=== PATIENT | female | born 1955 | race Caucasian/White ===

== ENCOUNTER 2019-10-03 05:39 | Day surgery (SDC) | payer BC, MEDICARE ==
[~2019-10-03 05:39] MED LIST: DIPRIVAN 200 MG/20 ML IV ONE
[2019-10-03] MEDS ORDERED: Lactated Ringers 1,000 ML IV ONE (06:58)
[2019-10-03] MEDS ORDERED: Lactated Ringers 1,000 ML IV SCH (07:30)
--- NOTE | 2019-10-03 08:49 | OP ---
SURGERY DATE/TIME: 10/03/2019811 PREOPERATIVE DIAGNOSIS: Screening exam. POSTOPERATIVE DIAGNOSIS: Multiple small rectosigmoid polyps. PROCEDURE: Colonoscopy with cold forceps biopsies. SURGEON: Dr. Dominguez. ANESTHESIA: MAC. Medications given by anesthesia department. HISTORY: The patient is a 64 year old white female presenting now for screening exam. She reports that ten years ago she had a colonoscopy and polyps had been removed with unknown pathology. She cannot remember the name of the GI that preformed it in [place]. The patient is felt the need to have endoscopic evaluation. She was appraised of the risks of the procedure including the risk of perforation, phlebitis, untoward reaction to medication, bleeding and missed lesions. The patient verbalized her understanding and desired to have the procedure performed. DESCRIPTION OF PROCEDURE: The patient was given the medications by the anesthesia department. She had continuous pulse oximetry, ECG monitoring, intermittent blood pressure monitoring and tidal CO2 monitoring during the examination. She was placed in the left lateral decubitus position. A digital rectal examination was performed and revealed normal anal sphincter tone, no masses but extensive external hemorrhoids were noted without active bleeding. There were no masses felt otherwise. The flexible Olympus pediatric colonoscope was used to intubate the rectum. A view of the colon was developed sequentially to the cecum. Upon insertion and withdrawal was noted multiple small early adenomatous appearing polyps in the rectosigmoid area. These were biopsied multiple times and using passage of cold forceps biopsies to destroy the lesions. Upon insertion and withdrawal including a retroflex view in the rectum, no other mucosal lesions being encountered. The scope was removed from the patient who tolerated the procedure well and was sent back to OP recovery in good condition. The prep was noted to be good.
[2019-10-03 09:32] VITALS: O2SAT 98
[2019-10-03 09:41] VITALS: BP 149/87; PULSE 69
== END 2019-10-03 09:35 | disposition home or self-care (01) ==
LOC: SDC 05:39
PROVIDERS: ATTEND Family Medicine
DX: Z12.11 Encounter for screening for malignant neoplasm of colon (principal); D12.7 Benign neoplasm of rectosigmoid junction; K64.4 Residual hemorrhoidal skin tags
CPT/HCPCS: 88305; J2704

== ENCOUNTER 2020-09-29 18:49 | Emergency (ER) | payer MEDICARE ==
[2020-09-29 19:11] LABS: INR 0.92 (0.8-3.0); PROTIME 10.9 SECONDS (9.4-12.5)
[2020-09-29 19:12] LABS: Absolute Neutrophil Ct (ANC) 5.12 (1.4-6.9); BASOPHIL % 0.2 % (0.0-0.4); Basophil (Absolute #) 0.02 (0-0.4); Eosinophil % 0.6 % (0.00-5.0); Eosinophil (Absolute #) 0.05 (0-0.5); Hematocrit 38.3 % (35-47); Lymphocyte (Absolute #) 1.99 (1.0-4.6); Lymphocytes % 24.3 % (24.0-44.0); Mean Cell Volume 86.5 fl (78-100); Mean Corpuscular Hemoglobin 29.3 pg (26-32); Mean Corpuscular Hgb Concent. 33.9 g/dl (32-36); Mean Platelet Volume 10.6 fl (7.5-11.0); Monocyte (Absolute #) 1.01 (0.0-1.3); Monocytes % 12.3 % (0.0-12.0); Neutrophil % 62.6 % (36.0-66.0); Platelet Count 221 K/mm3 (150-450); Red Blood Count 4.43 M/mm3 (4.1-5.4); Red Cell Distribution Width 13.7 % (11.5-14.0); White Blood Count 8.2 K/mm3 (4.0-10.5)
[2020-09-29 19:14] LABS: PTT 29.5 SECONDS (25.1-36.5)
--- NOTE | 2020-09-29 19:22 | ERPHSYRPT ---
- History of Present Illness Time Seen by Provider: 09/29/20 19:17 Historian: patient Exam Limitations: no limitations Patient Subjective Stated Complaint: Patient states she is having chest pain and abdominal pain which she saw her doctor for yesterday who believed it was a urinary tract infection. Unable to report how long she has had chest pain because she "has lost a couple days". States her chest pain "right in her nipples" area. States she is not having pain at this time. Triage Nursing Assessment: Patient presents to ED with chest pain. Patient poor historian due to memory loss. States she is not having pain at this time. EKG sinus rythym. Bp elevated 187/115. Physician History: 65 years old female with history of hypertension, hyperlipidemia presented in the ER with chief complaint of chest pain. Patient reports she is having chest pain all day yesterday behind her left breast, sharp without any significant aggravating or relieving factors. Patient was evaluated by her primary care yesterday as she had some abdominal discomfort as well for which she was given antibiotics to treat UTI. Patient reports she does not have any chest pain today but is concerned about her pain yesterday and she might have a heart attack already. She denies any difficulty breathing. Does not have any history of stenting in the past. Not diabetic and does not smoke. Timing/Duration: yesterday, intermittent, gradual onset, improved Activities at Onset: rest Quality: sharpness Chest Pain Radiation: no radiation Severity of Pain-Max: moderate Severity of Pain-Current: none Modifying Factors: Improves With: nothing Associated Symptoms: denies symptoms Prior Chest Pain/Cardiac Workup: no prior cardiac workup Nitro Today/Relief: no nitro taken today Aspirin Treatment Today: 81 mg x 1 Allergies/Adverse Reactions: No Known Drug Allergies Allergy (Unverified 09/29/19 14:46) Home Medications: Alendronate Sodium 70 mg [Fosamax 70 MG] 70 mg PO Q7D@0600 09/29/19 [History] Aspirin EC 81 mg [Ecotrin 81 mg] 81 mg PO DAILY 09/29/19 [History] Atenolol 25 mg PO DAILY 09/29/19 [History] Fluticasone Propion/Salmeterol [Wixela 100-50 Inhub] 1 each IH DAILY PRN 09/29/19 [History] Simvastatin 10 mg [Zocor 10MG] 10 mg PO DAILY 09/29/19 [History] Sulfamethoxazole/Trimethoprim [Bactrim 400-80 mg Tablet] 1 tab PO BID 09/29/20 [History] Hx Tetanus, Diphtheria Vaccination/Date Given: Yes Immunizations Up to Date: Yes Travel Risk - International Travel Have you traveled outside of the country in past 3 weeks: No - Coronavirus Screening Are you exhibiting any of the following symptoms?: No Close contact with a COVID-19 positive Pt in past 14-21 Days: No - Vaccine Status Have you recieved a Covid-19 vaccination: Yes Insurance Healthcare Representative: [employer] - Vaccination Dates Date of 2cond Vaccination (if applicable): 06/09/20 - Review of Systems Constitutional: No Symptoms Eyes: No Symptoms Ears, Nose, & Throat: No Symptoms Respiratory: No Symptoms Cardiac: Chest Pain Abdominal/Gastrointestinal: No Symptoms Genitourinary Symptoms: No Symptoms Musculoskeletal: No Symptoms Skin: No Symptoms Neurological: No Symptoms Psychological: No Symptoms Endocrine: No Symptoms Hematologic/Lymphatic: No Symptoms Immunological/Allergic: No Symptoms - Past Medical History Pertinent Past Medical History: Yes Neurological History: TIA ENT History: No Pertinent History Cardiac History: Aneurysm, High Cholesterol, Hypertension Respiratory History: COPD, Tuberculosis Endocrine Medical History: No Pertinent History Musculoskeletal History: Arthritis, Rheumatoid Arthritis GI Medical History: No Pertinent History History: No Pertinent History Psycho-Social History: No Pertinent History Female Reproductive Disorders: No Pertinent History Other Medical History: 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, 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 ,4 ministrokes-TIA - Past Surgical History Past Surgical History: Yes Neuro Surgical History: No Pertinent History Cardiac: No Pertinent History Respiratory: No Pertinent History Gastrointestinal: No Pertinent History Genitourinary: No Pertinent History Musculoskeletal: Orthopedic Surgery Female Surgical History: Tubal Ligation Other Surgical History: cyst on ovary,left wrist with metal placed - Social History Smoking Status: Former smoker Exposure to second hand smoke: No Drug Use: none Patient Lives Alone: Yes - Female History Hx Now: No - Nursing Vital Signs Nursing Vital Signs: Initial Vital Signs Temperature 97.8 F 09/29/20 18:50 Pulse Rate 75 09/29/20 18:50 Respiratory Rate 19 09/29/20 18:50 Blood Pressure 185/105 09/29/20 18:50 O2 Sat by Pulse Oximetry 97 09/29/20 18:50 Pain Scale Pain Intensity 0 - Physical Exam General Appearance: no apparent distress, alert Eye Exam: PERRL/EOMI Ears, Nose, Throat Exam: normal ENT inspection, TMs normal, pharynx normal Neck Exam: normal inspection, non-tender, supple, full range of motion Respiratory Exam: normal breath sounds, lungs clear Cardiovascular Exam: regular rate/rhythm, normal heart sounds Gastrointestinal/Abdomen Exam: soft, normal bowel sounds, No tenderness Back Exam: normal inspection, normal range of motion Extremity Exam: normal inspection, normal range of motion, pelvis stable Neurologic Exam: alert, oriented x 3, cooperative, roadside mechanic II-XII nml as tested Skin Exam: normal color SpO2 Interpretation: normal SpO2: 97 O2 Delivery: Room Air - Course EKG Interpreted by Me: RATE (77), Sinus Rhythm, NORMAL AXIS, NORMAL INTERVALS, Non-specific ST Changes Ordered Tests: Active Orders 24 hr Category Date Time Status Sales Account Executive STAT Care 09/29/20 19:03 Active EKG-ER Only STAT Care 09/29/20 19:02 Active IV Insertion STAT Care 09/29/20 19:02 Active CHEST 1 VIEW (PORTABLE) Stat Exams 09/29/20 19:03 Taken CHEST WITH CONTRAST [CT] Stat Exams 09/29/20 19:36 Taken CBC W DIFF Stat Lab 09/29/20 18:58 Completed CMP Stat Lab 09/29/20 18:58 Completed D-DIMER QUANTITATIVE Stat Lab 09/29/20 18:58 Completed NT PRO BNP Stat Lab 09/29/20 18:58 Completed PROTIME WITH INR Stat Lab 09/29/20 18:58 Completed PTT Stat Lab 09/29/20 18:58 Completed TROPONIN Q3H Lab 09/29/20 18:58 Completed TROPONIN Q3H Lab 09/29/20 21:48 Received TROPONIN Q3H Lab 09/30/20 01:15 Ordered TROPONIN Q3H Lab 09/30/20 04:15 Ordered TROPONIN Q3H Lab 09/30/20 07:15 Ordered Medication Summary Discontinued Medications Generic Name Dose Route Start Last Admin Trade Name Freq PRN Reason Stop Dose Admin Aspirin 243 mg 09/29/20 19:49 09/29/20 19:51 Baby Aspirin 81 Mg Chew PO 09/29/20 19:50 243 mg STAT ONE Administration Nitroglycerin Confirm 09/29/20 19:37 Nitro-Bid 2% Ud Packets Administered 09/29/20 19:38 Dose 1 gm .ROUTE .STK-MED ONE Nitroglycerin 1 gm 09/29/20 19:50 09/29/20 19:51 Nitro-Bid 2% Ud Packets TOP 09/29/20 19:51 1 gm STAT ONE Administration Lab/Rad Data: Laboratory Result Diagrams 09/29/20 18:58 09/29/20 18:58 Laboratory Results 09/29/20 09/29/20 09/29/20 Range/Units 18:58 18:58 18:58 WBC (4.0-10.5) K/mm3 RBC (4.1-5.4) M/mm3 Hgb (12.0-16.0) gm/dl Hct (35-47) % MCV (78-100) fl MCH (26-32) pg MCHC (32-36) g/dl RDW (11.5-14.0) % Plt Count (150-450) K/mm3 MPV (7.5-11.0) fl Gran % (36.0-66.0) % Eos # (Auto) (0-0.5) Absolute Lymphs (auto) (1.0-4.6) Absolute Monos (auto) (0.0-1.3) Lymphocytes % (24.0-44.0) % Monocytes % (0.0-12.0) % Eosinophils % (0.00-5.0) % Basophils % (0.0-0.4) % Absolute Granulocytes (1.4-6.9) Basophils # (0-0.4) PT 10.9 (9.4-12.5) SECONDS INR 0.92 (0.8-3.0) APTT 29.5 (25.1-36.5) SECONDS D-Dimer 1487 H* (215-500) ng/mL Sodium 129 L (137-145) mmol/L Potassium 3.8 (3.5-5.1) mmol/L Chloride 97 L (98-107) mmol/L Carbon Dioxide 24 (22-30) mmol/L Anion Gap 11.9 (5-15) MEQ/L BUN 6 L (7-17) mg/dL Creatinine 0.85 (0.52-1.04) mg/dL Estimated GFR > 60.0 ML/MIN Glucose 114 H (74-106) mg/dL Calcium 9.1 (8.4-10.2) mg/dL Total Bilirubin 0.40 (0.2-1.3) mg/dL AST 220 H (14-36) U/L ALT 110 H (0-35) U/L Alkaline Phosphatase 58 (38-126) U/L Troponin I 0.061 H* (0.000-0.034) ng/mL NT-Pro-B Natriuret Pep 420 (0-900) pg/mL Serum Total Protein 6.7 (6.3-8.2) g/dL Albumin 4.3 (3.5-5.0) g/dL 09/29/20 Range/Units 18:58 WBC 8.2 (4.0-10.5) K/mm3 RBC 4.43 (4.1-5.4) M/mm3 Hgb 13.0 (12.0-16.0) gm/dl Hct 38.3 (35-47) % MCV 86.5 (78-100) fl MCH 29.3 (26-32) pg MCHC 33.9 (32-36) g/dl RDW 13.7 (11.5-14.0) % Plt Count 221 (150-450) K/mm3 MPV 10.6 (7.5-11.0) fl Gran % 62.6 (36.0-66.0) % Eos # (Auto) 0.05 (0-0.5) Absolute Lymphs (auto) 1.99 (1.0-4.6) Absolute Monos (auto) 1.01 (0.0-1.3) Lymphocytes % 24.3 (24.0-44.0) % Monocytes % 12.3 H (0.0-12.0) % Eosinophils % 0.6 (0.00-5.0) % Basophils % 0.2 (0.0-0.4) % Absolute Granulocytes 5.12 (1.4-6.9) Basophils # 0.02 (0-0.4) PT (9.4-12.5) SECONDS INR (0.8-3.0) APTT (25.1-36.5) SECONDS D-Dimer (215-500) ng/mL Sodium (137-145) mmol/L Potassium (3.5-5.1) mmol/L Chloride (98-107) mmol/L Carbon Dioxide (22-30) mmol/L Anion Gap (5-15) MEQ/L BUN (7-17) mg/dL Creatinine (0.52-1.04) mg/dL Estimated GFR ML/MIN Glucose (74-106) mg/dL Calcium (8.4-10.2) mg/dL Total Bilirubin (0.2-1.3) mg/dL AST (14-36) U/L ALT (0-35) U/L Alkaline Phosphatase (38-126) U/L Troponin I (0.000-0.034) ng/mL NT-Pro-B Natriuret Pep (0-900) pg/mL Serum Total Protein (6.3-8.2) g/dL Albumin (3.5-5.0) g/dL - Progress Progress: re-examined Air Movement: good Progress Note: 09/29/20 19:52 65-year-old is evaluated for left-sided chest pain with some shortness of breath earlier. Patient does not have any chest pain or shortness of breath but has some tightness in the chest. Given aspirin and Nitropaste. EKG showed sinus rhythm with no acute ST elevation fulfilling criteria for STEMI, does have right bundle branch block. Initial troponins are mildly elevated 0.06 and also has elevated D-dimer in 1400s. Patient wants to go to [facility] if we need to transfer. I have discussed with [facility] who do not think patient needs to be taken to [facility] immediately and we can go ahead with CTA chest to rule out PE especially the fact that patient does not have any chest pain at present. 09/29/20 21:18 I have called [facility] and discussed with cardiology but patient later on decided to go to [facility] as she wanted to go there to begin with as long as Dr. Bass goes there which I confirmed that he goes to both places. CTA is negative for PE, dissection or any other acute findings. Patient does not have any chest pain throughout stay in the ER and her pressure in the chest and blood pressure also improved with Nitropaste. Discussed with Dr. Rhoades at [facility] ER, reviewed history, work-up and current management, agreed with transfer. Blood Culture(s) Obtained: No Antibiotics given: No Discussed with : Other (Bari) Counseled pt/family regarding: lab results, diagnosis ( ideology), rad results - Departure Departure Disposition: Transfer Clinical Impression: NSTEMI (non-ST elevated myocardial infarction) Condition: Stable Critical Care Time: Yes Critical Care Time(excluding separately billable procedures): Critical 30-74 mins Referrals: MEETA HOBBS [Primary Care Provider] -
[2020-09-29 19:24] LABS: ALBUMIN 4.3 g/dL (3.5-5.0); ALKALINE PHOSPHATASE 58 U/L (38-126); ANION GAP 11.9 MEQ/L (5-15); BLOOD UREA NITROGEN 6 mg/dL (7-17); CHLORIDE 97 mmol/L (98-107); Calcium 9.1 mg/dL (8.4-10.2); Carbon Dioxide 24 mmol/L (22-30); Creatinine 1 0.85 mg/dL (0.52-1.04); EST GLOMERULAR FILTRATION RATE > 60.0 ML/MIN; Glucose 114 mg/dL (74-106); NT PRO BNP 420 pg/mL (0-900); Potassium 3.8 mmol/L (3.5-5.1); SGOT/AST 220 U/L (14-36); SGPT/ALT 110 U/L (0-35); SODIUM 129 mmol/L (137-145); Total Protein 6.7 g/dL (6.3-8.2)
[2020-09-29] MEDS ORDERED: NITRO-BID 2% UD PACKETS ONE (19:37)
[2020-09-29] MEDS ORDERED: BABY ASPIRIN 81 MG CHEW PO ONE (19:49)
[2020-09-29] MEDS ORDERED: NITRO-BID 2% UD PACKETS TOP ONE (19:50)
[2020-09-29 22:12] VITALS: BP 170/105; PULSE 72
[2020-09-29 22:40] VITALS: O2SAT 97
--- NOTE | 2020-09-30 09:56 | XRAY ---
Exam: CT of the chest with IV contrast from 09/29/2020. CTDI: 11.84 mGy Comparison: AP upright portable chest film from 09/29/2020. Indication: 65-year-old female with chest pain and shortness of air for 3 days; history of COPD; elevated d-dimer of 1487; increased troponin Technique: Post-IV contrast axial images were obtained through the chest during automated injection of 80 ML's of IV 370 contrast material. Reconstructed coronal and sagittal images were created and reviewed. Findings: The pulmonary arteries enhance well revealing no filling defects to suggest clot/emboli. I see no evidence of thoracic aortic aneurysm or dissection. The heart size is normal without pericardial effusion. I see no evidence of abnormal perihilar or mediastinal lymphadenopathy. No abnormal axillary lymphadenopathy is seen. A couple small granulomatous calcifications are seen to the right of the distal posterior trachea. Moderate centrilobular emphysematous changes are seen, greatest within the upper lobes. No infiltrates, vascular congestion, pneumothorax, or pleural fluid is seen. No soft tissue lung nodule is seen. There is a small retrocardiac hiatal hernia. The upper abdomen reveals an 8 mm in diameter cyst or small hemangioma the anterior margin of the liver. There is also suggestion of a 6 mm cyst or small hemangioma at the superior margin of the hepatic lobe. Minimal nodularity of the right adrenal gland is seen. There is some fullness of the left adrenal gland on axial image #274. This could be due to hyperplasia or perhaps a small adenoma. Other etiologies cannot be completely excluded. The skeleton reveals no fracture or other acute process. There is a mild mid dorsal kyphosis. Minimal degenerative changes are seen within the lower thoracic spine. Impression: 1. I see no evidence of acute pulmonary embolism or other acute process within the chest. 2. Moderate centrilobular emphysematous changes are seen bilaterally, most pronounced within the upper lobes. 3. 8 mm in diameter hepatic cyst versus hemangioma at the anterior margin of the liver. See axial image #269. In addition, there may be a second 6 mm cyst or hemangioma at the upper aspect of the left lobe of the liver on image #264. 4. Small hiatal hernia. 5. There is mild fullness within both adrenal glands, left greater than right. It is likely that this is due to adrenal hyperplasia or small adrenal adenomas. Other possibilities are not completely excluded.
--- NOTE | 2020-09-30 16:48 | XRAY ---
Exam: AP upright portable chest film from 09/29/2020. Comparison: None. Indication: Chest pain. Findings: The heart size and contour are normal. The fuad and mediastinal structures appear unremarkable. Mild atherosclerotic vascular calcification is seen within the aortic knob. The lungs are mildly hyperinflated. Some emphysematous changes are suspected within the upper lobes. No air space infiltrates, vascular congestion, pneumothorax, or pleural fluid is seen. No acute osseous process is seen. Impression: 1. Mild hyperinflation of the lungs with some relative radiolucency overlying both upper lobes suggestive of emphysematous changes. 2. No acute cardiopulmonary disease is seen.
== END 2020-09-29 23:05 | disposition short-term general hospital (02) ==
LOC: ED 18:49
DX: I21.4 Non-ST elevation (NSTEMI) myocardial infarction (principal); I10 Essential (primary) hypertension; E78.5 Hyperlipidemia, unspecified
CPT/HCPCS: 36000; 36415; 71045; 71260; 80053; 83880; 84484; 85025; 85379; 85610; 85730; 93005; 93041; 99285; 99291; A9270-GY

== ENCOUNTER 2021-07-02 12:08 | Emergency (ER) | payer MEDICARE ==
--- NOTE | 2021-07-02 13:00 | ERPHSYRPT ---
- History of Present Illness Time Seen by Provider: 07/02/21 12:57 Source: patient Exam Limitations: no limitations Patient Subjective Stated Complaint: Swelling to LLE Triage Nursing Assessment: Patient ambulated back to ED and transferred to bed per self. Patient A+O X 3. Patient's skin pink, warm and dry. Patient complains of LLE swelling and redness since yesterday. Patient has dx of DVT in LLE. Patient complains of pain 5/10. LLE noted to be red, warm and swollen. Pulses noted. Physician History: Patient complains of LLE swelling and redness since yesterday. Patient has dx of DVT in LLE. Patient complains of pain 5/10. LLE noted to be red, warm and swollen. Timing/Duration: yesterday Severity: mild Associated Symptoms: denies symptoms Allergies/Adverse Reactions: No Known Drug Allergies Allergy (Verified 07/02/21 12:21) Home Medications: Alendronate Sodium 70 mg [Fosamax 70 MG] 70 mg PO Q7D@0600 09/29/19 [History] Aspirin EC 81 mg [Ecotrin 81 mg] 81 mg PO DAILY 09/29/19 [History] Fluticasone Propion/Salmeterol [Wixela 100-50 Inhub] 1 each IH DAILY PRN 0 09/29/19 [History] Simvastatin 10 mg [Zocor 10MG] 10 mg PO DAILY 09/29/19 [History] atenoloL [Atenolol] 25 mg PO DAILY 09/29/19 [History] Sulfamethoxazole/Trimethoprim [Bactrim 400-80 mg Tablet] 1 tab PO BID 09/29/20 [History] Hx Tetanus, Diphtheria Vaccination/Date Given: Yes Hx Influenza Vaccination/Date Given: Yes Hx Pneumococcal Vaccination/Date Given: No Immunizations Up to Date: Yes Travel Risk - International Travel Have you traveled outside of the country in past 3 weeks: No - Coronavirus Screening Are you exhibiting any of the following symptoms?: No Close contact with a COVID-19 positive Pt in past 14-21 Days: No - Vaccine Status Have you recieved a Covid-19 vaccination: Yes [employer]: [employer] - Vaccination Dates Date of 2cond Vaccination (if applicable): 06/09/20 - Review of Systems Constitutional: No Fever, No Chills Eyes: No Symptoms Ears, Nose, & Throat: No Symptoms Respiratory: No Cough, No Dyspnea Cardiac: No Chest Pain, No Edema, No Syncope Abdominal/Gastrointestinal: No Abdominal Pain, No Nausea, No Vomiting, No Diarrhea Genitourinary Symptoms: No Dysuria Musculoskeletal: No Back Pain, No Neck Pain Skin: Cellulitis (left lower leg cunningham area), No Rash Neurological: No Dizziness, No Focal Weakness, No Sensory Changes Psychological: No Symptoms Endocrine: No Symptoms All Other Systems: Reviewed and Negative - Past Medical History Pertinent Past Medical History: Yes Neurological History: TIA ENT History: No Pertinent History Cardiac History: Aneurysm, High Cholesterol, Hypertension Respiratory History: COPD, Tuberculosis Endocrine Medical History: No Pertinent History Musculoskeletal History: Arthritis, Rheumatoid Arthritis GI Medical History: No Pertinent History History: No Pertinent History Psycho-Social History: No Pertinent History Female Reproductive Disorders: No Pertinent History Other Medical History: 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, 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 ,4 ministrokes-TIA - Past Surgical History Past Surgical History: Yes Neuro Surgical History: No Pertinent History Cardiac: No Pertinent History Respiratory: No Pertinent History Gastrointestinal: No Pertinent History Genitourinary: No Pertinent History Musculoskeletal: Orthopedic Surgery Female Surgical History: Tubal Ligation Other Surgical History: cyst on ovary,left wrist with metal placed - Social History Smoking Status: Former smoker Exposure to second hand smoke: No Drug Use: none Patient Lives Alone: Yes - Nursing Vital Signs Nursing Vital Signs: Initial Vital Signs Temperature 97.3 F 07/02/21 12:21 Pulse Rate 74 07/02/21 12:21 Respiratory Rate 18 07/02/21 12:21 Blood Pressure 168/95 07/02/21 12:21 O2 Sat by Pulse Oximetry 97 07/02/21 12:21 Pain Scale Pain Intensity 5 - Physical Exam General Appearance: no apparent distress, alert Eye Exam: PERRL/EOMI, eyes nml inspection Ears, Nose, Throat Exam: normal ENT inspection, TMs normal, pharynx normal, moist mucous membranes Neck Exam: normal inspection, non-tender, supple, full range of motion Respiratory Exam: normal breath sounds, lungs clear, No respiratory distress Cardiovascular Exam: regular rate/rhythm, normal heart sounds, normal peripheral pulses Gastrointestinal/Abdomen Exam: soft, normal bowel sounds, No tenderness, No mass Back Exam: normal inspection, normal range of motion, No CVA tenderness, No vertebral tenderness Extremity Exam: normal inspection, normal range of motion, pelvis stable Neurologic Exam: alert, oriented x 3, cooperative, normal mood/affect, nml cerebellar function, nml station & gait, sensation nml, No motor deficits Skin Exam: normal color, warm, dry, No rash Lymphatic Exam: No adenopathy SpO2 Interpretation: normal SpO2: 97 O2 Delivery: Room Air - Course Nursing assessment & vital signs reviewed: Yes Ordered Tests: Active Orders 24 hr Category Date Time Status CBC W DIFF Stat Lab 07/02/21 13:00 Completed CMP Stat Lab 07/02/21 13:00 Completed Lab/Rad Data: Laboratory Result Diagrams 07/02/21 13:00 07/02/21 13:00 Laboratory Results 07/02/21 07/02/21 Range/Units 13:00 13:00 WBC 11.7 H (4.0-10.5) K/mm3 RBC 4.42 (4.1-5.4) M/mm3 Hgb 13.0 (12.0-16.0) gm/dl Hct 38.7 (35-47) % MCV 87.6 (78-100) fl MCH 29.4 (26-32) pg MCHC 33.6 (32-36) g/dl RDW 13.4 (11.5-14.0) % Plt Count 230 (150-450) K/mm3 MPV 10.4 (7.5-11.0) fl Gran % 70.1 H (36.0-66.0) % Eos # (Auto) 0.08 (0-0.5) Absolute Lymphs (auto) 2.23 (1.0-4.6) Absolute Monos (auto) 1.14 (0.0-1.3) Lymphocytes % 19.1 L (24.0-44.0) % Monocytes % 9.8 (0.0-12.0) % Eosinophils % 0.7 (0.00-5.0) % Basophils % 0.3 (0.0-0.4) % Absolute Granulocytes 8.19 H (1.4-6.9) Basophils # 0.04 (0-0.4) Sodium 134 L (137-145) mmol/L Potassium 3.8 (3.5-5.1) mmol/L Chloride 100 (98-107) mmol/L Carbon Dioxide 25 (22-30) mmol/L Anion Gap 13.3 (5-15) MEQ/L BUN 12 (7-17) mg/dL Creatinine 0.72 (0.52-1.04) mg/dL Estimated GFR > 60.0 ML/MIN Glucose 94 (74-106) mg/dL Calcium 9.1 (8.4-10.2) mg/dL Total Bilirubin 0.40 (0.2-1.3) mg/dL AST 30 (14-36) U/L ALT 25 (0-35) U/L Alkaline Phosphatase 65 (38-126) U/L Serum Total Protein 6.6 (6.3-8.2) g/dL Albumin 4.1 (3.5-5.0) g/dL - Progress Progress: unchanged Counseled pt/family regarding: lab results, diagnosis, need for follow-up - Departure Departure Disposition: Home Clinical Impression: Thrombophlebitis leg superficial Qualifiers: Laterality: left Qualified Code(s): I80.02 - Phlebitis and thrombophlebitis of superficial vessels of left lower extremity Condition: Stable Critical Care Time: No Referrals: MEETA HOBBS MD [Primary Care Provider] - Follow up/PCP as directed Instructions: Superficial Phlebitis, Phlebitis (DC) Additional Instructions: Discharge/Care Plan ESTUARDO FAUST was seen on 07/02/21 in the Emergency Room. The patient was counseled regarding Diagnosis,Lab results, Imaging studies, need for follow up and when to return to the Emergency Room. Prescriptions given: Discharge Note I have spoken with the patient and/or caregivers. I have explained the patient's condition, diagnosis and treatment plan based on the information available to me at this time. I have answered the patient's and/or caregiver's questions and addressed any concerns. The patient and/or caregivers have as good understanding of the patient's diagnosis, condition and treatment plan as can be expected at this point. The vital signs have been stable. The patient's condition is stable and appropriate for discharge from the emergency department. The patient will pursue further outpatient evaluation with the primary care physician or other designated or consulting physician as outlined in the discharge instructions. The patient and/or caregivers are agreeable to this plan of care and follow-up instructions have been explained in detail. The patient and/or caregivers have received these instruction. The patient/and or caregivers are aware that any significant change in condition or worsening of symptoms should prompt an immediate return to this or the closest emergency department or call 911. ESTUARDO FAUST was seen on 07/02/21 n the Emergency Room. At that time you were treated for an emergent condition, during your visit Laboratory, Radiology and/or other procedures may have been ordered. It is very important that you follow-up with your Primary Care Physician MEETA HOBBS within the next 24 -48 hours to review your Emergency Room visit and the final results of testing that was ordered. Some test results such as Urine Cultures, Blood Cultures, and other cultures if ordered will not be finalized for 24-48 hours. If you do not have a Primary Care Provider please call the medical records department at [phone] ext [phone] to obtain a copy of your results or you may sign into our patient portal to obtain these results by visiting us @ [email or web address] and completing the following steps: 1. Click on the Patient Portal link 2. Click the Patient Self Enrollment Link to complete the enrollment form and entering your 3. Once the enrollment form is completed you will receive an email with a temporary ID and password at the email address you provided. 4. Next choose a user name and password. Your user name must be at least 4 jd racters long and your password must be at least 4 characters long. 5. Choose a security question from the list and provide your answer to the question. If you already have signed into the Health Portal you may access your Health Care Information 30/10 by the following steps: 1. Login to our website @ [email or web address] 2. Enter your original user name and password. FAQS The [facility] Health Portal is an online tool that contains your Lab Results, Radiology Reports, Visit History, Discharge Instructions and Health Summary Lab and Radiology Results will not be available for 72 hours on the portal. The Portal is a secure site, passwords are encryted and URLs are re-written so they cannot be copied and pasted. You and authorized family members are the only ones who can access your Portal. Also there is a timeout feature that protects your information if you leave the Portal page open. If you have technical difficulty please use the Contact Us link on the page this will allow you to submit any questions you have regarding the Portal or you may contact the Medical Record Department at [phone]. Prescriptions: Mupirocin [Bactroban OINTMENT] 1 gm TP BID #15 cm Cephalexin Mh 500 mg [Keflex 500 mg] 500 mg PO Q6H #40 cap
[2021-07-02 13:08] LABS: Absolute Neutrophil Ct (ANC) 8.19 (1.4-6.9); Basophil (Absolute #) 0.04 (0-0.4); Eosinophil % 0.7 % (0.00-5.0); Eosinophil (Absolute #) 0.08 (0-0.5); Hematocrit 38.7 % (35-47); Lymphocyte (Absolute #) 2.23 (1.0-4.6); Lymphocytes % 19.1 % (24.0-44.0); Mean Cell Volume 87.6 fl (78-100); Mean Corpuscular Hemoglobin 29.4 pg (26-32); Mean Corpuscular Hgb Concent. 33.6 g/dl (32-36); Mean Platelet Volume 10.4 fl (7.5-11.0); Monocyte (Absolute #) 1.14 (0.0-1.3); Monocytes % 9.8 % (0.0-12.0); Neutrophil % 70.1 % (36.0-66.0); Platelet Count 230 K/mm3 (150-450); Red Blood Count 4.42 M/mm3 (4.1-5.4); Red Cell Distribution Width 13.4 % (11.5-14.0); White Blood Count 11.7 K/mm3 (4.0-10.5)
[2021-07-02 13:27] LABS: ALBUMIN 4.1 g/dL (3.5-5.0); ALKALINE PHOSPHATASE 65 U/L (38-126); ANION GAP 13.3 MEQ/L (5-15); BLOOD UREA NITROGEN 12 mg/dL (7-17); CHLORIDE 100 mmol/L (98-107); Calcium 9.1 mg/dL (8.4-10.2); Carbon Dioxide 25 mmol/L (22-30); Creatinine 1 0.72 mg/dL (0.52-1.04); EST GLOMERULAR FILTRATION RATE > 60.0 ML/MIN; Glucose 94 mg/dL (74-106); Potassium 3.8 mmol/L (3.5-5.1); SGOT/AST 30 U/L (14-36); SGPT/ALT 25 U/L (0-35); SODIUM 134 mmol/L (137-145); Total Protein 6.6 g/dL (6.3-8.2)
[2021-07-02 13:49] VITALS: BP 151/83; PULSE 68; O2SAT 98
== END 2021-07-02 13:54 | disposition home or self-care (01) ==
LOC: ED 12:08
DX: I80.02 Phlebitis and thrombophlebitis of superficial vessels of left lower extremity (principal); R60.0 Localized edema; Z86.718 Personal history of other venous thrombosis and embolism; E78.5 Hyperlipidemia, unspecified; I10 Essential (primary) hypertension; J44.9 Chronic obstructive pulmonary disease, unspecified; Z79.899 Other long term (current) drug therapy
CPT/HCPCS: 36415; 80053; 85025; 99283

== ENCOUNTER 2022-01-13 13:45 | Emergency (ER) | payer MEDICARE ==
--- NOTE | 2022-01-13 14:54 | ERPHSYRPT ---
- History of Present Illness Source: patient Exam Limitations: no limitations Patient Subjective Stated Complaint: C/O pain and swelling to left lower leg that started yesterday Triage Nursing Assessment: Patient ambulated back to ED without difficulites. Redness, warmth, and swelling noted to left lower anterior leg. Pedal pulse present and strong. Skin intact to area. Physician History: 66 yo wf w L pre-tibial pain, erythema, and edema since last night. Pt has a h/o a "blood clot" and thinks that she has one again. She take Plavix/Aspirin daily. Pt states that pain is 5/10 and denies fever/chest pain/dyspnea. Injury is also denied. Method of Injury: unknown (No injury) Occurred: yesterday Quality: constant Severity of Pain-Max: moderate Severity of Pain-Current: moderate Lower Extremities Pain: leg: left Modifying Factors: Improves With: movement Associated Symptoms: none Allergies/Adverse Reactions: No Known Drug Allergies Allergy (Verified 01/13/22 14:04) Home Medications: Alendronate Sodium 70 mg [Fosamax 70 MG] 70 mg PO Q7D@0600 09/29/19 [History] Aspirin EC 81 mg [Ecotrin 81 mg] 81 mg PO DAILY 09/29/19 [History] Amlodipine Besylate 5 mg [Norvasc 5 mg] 1 tab PO DAILY 01/13/22 [History] Atorvastatin Calcium [Lipitor] 1 tab PO HS 01/13/22 [History] Clopidogrel Bisulfate [PLAVIX Tablet] 1 tab PO DAILY 01/13/22 [History] Metoprolol Tartrate 50 mg [Lopressor 50 MG] 1 tab PO BID 01/13/22 [History] Hx Tetanus, Diphtheria Vaccination/Date Given: Yes Hx Influenza Vaccination/Date Given: Yes Hx Pneumococcal Vaccination/Date Given: No Immunizations Up to Date: Yes Travel Risk - International Travel Have you traveled outside of the country in past 3 weeks: No - Coronavirus Screening Are you exhibiting any of the following symptoms?: No Close contact with a COVID-19 positive Pt in past 14-21 Days: No - Vaccine Status Have you recieved a Covid-19 vaccination: Yes Manager System: [employer] - Vaccination Dates Date of 2cond Vaccination (if applicable): 06/09/20 - Review of Systems Constitutional: No Symptoms Eyes: No Symptoms Ears, Nose, & Throat: No Symptoms Respiratory: No Symptoms Cardiac: No Symptoms Abdominal/Gastrointestinal: No Symptoms Genitourinary Symptoms: No Symptoms Skin: No Symptoms Neurological: No Symptoms Psychological: No Symptoms Endocrine: No Symptoms Hematologic/Lymphatic: No Symptoms Immunological/Allergic: No Symptoms - Past Medical History Pertinent Past Medical History: Yes Neurological History: TIA ENT History: No Pertinent History Cardiac History: Aneurysm, High Cholesterol, Hypertension Respiratory History: COPD, Emphysema, Tuberculosis Endocrine Medical History: No Pertinent History Musculoskeletal History: Arthritis, Rheumatoid Arthritis GI Medical History: No Pertinent History History: No Pertinent History Psycho-Social History: No Pertinent History Female Reproductive Disorders: No Pertinent History Other Medical History: 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, 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 ,4 ministrokes-TIA, LLE blood clot - Past Surgical History Past Surgical History: Yes Neuro Surgical History: No Pertinent History Cardiac: No Pertinent History Respiratory: No Pertinent History Gastrointestinal: No Pertinent History Genitourinary: No Pertinent History Musculoskeletal: Orthopedic Surgery Female Surgical History: Tubal Ligation Other Surgical History: cyst on ovary,left wrist with metal placed - Social History Smoking Status: Former smoker Exposure to second hand smoke: No Drug Use: none Patient Lives Alone: Yes - Nursing Vital Signs Nursing Vital Signs: Initial Vital Signs Temperature 98.6 F 01/13/22 14:06 Pulse Rate 74 01/13/22 14:06 Respiratory Rate 18 01/13/22 14:06 Blood Pressure 165/93 01/13/22 14:06 O2 Sat by Pulse Oximetry 98 01/13/22 14:06 Pain Scale Pain Intensity 4 Hypertensive - Physical Exam General Appearance: no apparent distress Eyes, Ears, Nose, Throat Exam: normal ENT inspection, TMs normal, pharynx normal, moist mucous membranes Neck Exam: normal inspection, non-tender, supple, full range of motion, No Brudzinski, No Kernig's, No meningismus, No carotid bruit Cardiovascular/Respiratory Exam: normal breath sounds, regular rate/rhythm, heart sounds normal Gastrointestinal/Abdominal Exam: non-tender, soft Back Exam: normal inspection, normal range of motion, No CVA tenderness Hips Exam: bilateral: non-tender, normal inspection, normal range of motion, no evidence of injury Legs Exam: left leg: swelling (Mild left pre-tibial erythema, mild TTP, and minimal edema at best/No deformity/No calf edema or TTP/Good pedal pulse, distal sensation, and capillary return) Knees Exam: bilateral knee: non-tender, normal inspection, normal range of motion, no evidence of injury Ankle Exam: bilateral ankle: non-tender, normal inspection, normal range of motion, no evidence of injury Foot Exam: bilateral foot: non-tender, normal inspection, normal range of motion, no evidence of injury Neuro/Tendon Exam: normal sensation, normal motor functions, normal tendon functions, responds to pain, no evidence tendon injury Mental Status Exam: alert, oriented x 3, cooperative Skin Exam: other (Mild L pre-tibal erythema) SpO2 Interpretation: normal SpO2: 98 O2 Delivery: Room Air - Course Nursing assessment & vital signs reviewed: Yes - Radiology Ultrasound Exam Venous Lower Extremity Ultrasound: Other (Neg for DVT per Tech) Ordered Tests: Active Orders 24 hr Category Date Time Status VENOUS UNILAT/LIMITED EXTREMIT [US] Stat Exams 01/13/22 14:49 Completed - Progress Progress Note: 01/13/22 21:01 Pt has very mild erythema, so will treat for possible early cellulitis Counseled pt/family regarding: diagnosis, need for follow-up, rad results - Departure Departure Disposition: Home Clinical Impression: Cellulitis Condition: Stable Critical Care Time: No Referrals: MEETA HOBBS MD [Primary Care Provider] - Follow up/PCP as directed Instructions: Dependent Edema (DC), Cellulitis (Skin Infection), Adult (DC) Additional Instructions: Start Doxycycline twice a day for 1 week Follow up with your family MD on Sunday Return to ER for increasing redness/Pain/Swelling/Temperature greater than 100.5 Prescriptions: Doxycycline Monohydrate 100 mg PO BID #14 cap
[2022-01-13 15:22] VITALS: BP 141/83; PULSE 70
[2022-01-13 15:24] VITALS: O2SAT 98
--- NOTE | 2022-01-13 16:21 | XRAY ---
Indication: Pain and swelling. Two-dimensional sonogram and color Doppler imaging of the major venous vessels of the left leg performed. Comparison: None No thrombus seen in the examined deep venous vessels of the left leg including greater saphenous vein. Veins demonstrate normal compressibility. Venous waveforms are normal with and without augmentation. Impression: Left leg negative for DVT.
== END 2022-01-13 15:40 | disposition home or self-care (01) ==
LOC: ED 13:45
DX: L03.116 Cellulitis of left lower limb (principal); M79.662 Pain in left lower leg; E78.5 Hyperlipidemia, unspecified; I10 Essential (primary) hypertension; J43.9 Emphysema, unspecified; Z79.02 Long term (current) use of antithrombotics/antiplatelets; Z79.899 Other long term (current) drug therapy
CPT/HCPCS: 93971; 99282

== ENCOUNTER 2023-09-14 19:59 | Observation (INO) | payer MEDICARE ==
--- NOTE | 2023-09-14 20:05 | ERPHSYRPT ---
- History of Present Illness Time Seen by Provider: 09/14/23 20:04 Source: patient, family Exam Limitations: clinical condition Physician History: This is a 68-year-old white female patient of Dr. Hobbs who is brought in by private vehicle by the patient's mother who offered independent, additional history secondary to the patient's confusion. Patient's mother states that the patient was last well approximately 10 to 10:15 PM yesterday, 09/13/2023. Patient was confused earlier this morning. Patient does not recall all the events from earlier today. Mother states that the patient put her cell phone and a glass of water. Patient has known history of TIAs and lacunar infarcts. I reviewed an MRI of the brain with and without contrast report dated 08/31/2022. The impression states a remote lacunar infarct present. Patient is a former smoker cigarettes. She does not recall hitting her head. There are no new medications. Patient has history of hypertension, hyperlipidemia, COPD and osteoporosis. Patient is on Plavix and aspirin. Timing/Duration: today, improved Severity: mild (To moderate symptoms earlier) Character of Deficits: none, other Deficits: no difficulties Baseline/Normal Cognition: alert oriented x 3 Current Cognition: alert but confused Baseline Gait: walks w/o assistance (Mildly confused) Associated Symptoms: confusion, No loss of consciousness, No numbness/tingling in legs/feet, No slurred speech, No trouble walking, No vision changes, No chest pain, No headache Allergies/Adverse Reactions: No Known Drug Allergies Allergy (Verified 01/13/22 14:04) Home Medications: Alendronate Sodium 70 mg [Fosamax 70 MG] 70 mg PO Q7D@0600 09/29/19 [History] Aspirin EC 81 mg [Ecotrin 81 mg] 81 mg PO DAILY 09/29/19 [History] Amlodipine Besylate 5 mg [Norvasc 5 mg] 1 tab PO DAILY 01/13/22 [History] Atorvastatin Calcium [Lipitor] 1 tab PO HS 01/13/22 [History] Metoprolol Tartrate 50 mg [Lopressor 50 MG] 1 tab PO BID 01/13/22 [History] Montelukast Sodium 10 mg [Singulair 10 MG] 10 mg PO DAILY 09/14/23 [History] Spironolactone 50 mg PO DAILY PRN PRN 09/14/23 [History] Hx Tetanus, Diphtheria Vaccination/Date Given: Yes Hx Influenza Vaccination/Date Given: Yes Hx Pneumococcal Vaccination/Date Given: No Travel Risk - International Travel Have you traveled outside of the country in past 3 weeks: No - Emerging Infectious Disease Are you exhibiting symptoms associated with any current EIDs: No - Review of Systems Constitutional: No Symptoms Eyes: No Symptoms Ears, Nose, & Throat: No Symptoms Respiratory: No Symptoms Cardiac: No Symptoms Abdominal/Gastrointestinal: No Symptoms Genitourinary Symptoms: No Symptoms Musculoskeletal: No Symptoms Skin: No Symptoms Neurological: Other (Confusion) Psychological: No Symptoms Endocrine: No Symptoms Hematologic/Lymphatic: No Symptoms Immunological/Allergic: No Symptoms All Other Systems: Reviewed and Negative - Past Medical History Pertinent Past Medical History: Yes Neurological History: TIA ENT History: No Pertinent History Cardiac History: Aneurysm, High Cholesterol, Hypertension Respiratory History: COPD, Emphysema, Tuberculosis Endocrine Medical History: No Pertinent History Musculoskeletal History: Arthritis, Rheumatoid Arthritis GI Medical History: No Pertinent History History: No Pertinent History Psycho-Social History: No Pertinent History Female Reproductive Disorders: No Pertinent History Other Medical History: 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, 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 ,4 ministrokes-TIA, LLE blood clot - Past Surgical History Past Surgical History: Yes Neuro Surgical History: No Pertinent History Cardiac: No Pertinent History Respiratory: No Pertinent History Gastrointestinal: No Pertinent History Genitourinary: No Pertinent History Musculoskeletal: Orthopedic Surgery Female Surgical History: Tubal Ligation Other Surgical History: cyst on ovary,left wrist with metal placed - Social History Smoking Status: Former smoker Exposure to second hand smoke: No Drug Use: none Patient Lives Alone: Yes - Nursing Vital Signs Nursing Vital Signs: Initial Vital Signs O2 Sat by Pulse Oximetry 92 L 09/14/23 20:07 Pain Scale Pain Intensity 0 - [place] Coma Scale Best Eye Response ([place]): (4) open spontaneously Best Verbal Response ([place]): (5) oriented Best Motor Response ([place]): (6) obeys commands [place] Total: 15 - Physical Exam General Appearance: no apparent distress, alert, anxiety, thin Eye Exam: bilateral eye: normal inspection, PERRL, EOMI Ears, Nose, Throat Exam: normal ENT inspection, moist mucous membranes Neck Exam: normal inspection, non-tender, supple, full range of motion Respiratory: normal breath sounds, lungs clear, airway intact, No chest tenderness, No respiratory distress Cardiovascular: regular rate/rhythm, normal heart sounds, normal peripheral pulses Gastrointestinal: soft, normal bowel sounds, No tenderness Pelvic Exam: not done Rectal Exam: not done Back Exam: normal inspection, normal range of motion, No CVA tenderness, No vertebral tenderness Extremity Exam: normal inspection, normal range of motion, pelvis stable Mental Status: alert, oriented x 3, cooperative penal officer Exam: normal hearing, normal speech, PERRL, tongue midline Coordination/Gait: normal finger to nose Motor/Sensory: no motor deficit, no sensory deficit, no pronator drift Skin Exam: normal color, warm, dry SpO2 Interpretation: normal O2 Delivery: Room Air - Course Nursing assessment & vital signs reviewed: Yes EKG Interpreted by Me: RATE (76), Sinus Rhythm, NORMAL AXIS, NORMAL INTERVALS, NORMAL QRS, NORMAL ST-T, Other (No acute ischemic changes on today's twelve-lead EKG. The QTc is 430) Ordered Tests: Active Orders 24 hr Category Date Time Status User Interface Designer STAT Care 09/14/23 20:26 Active EKG-ER Only STAT Care 09/14/23 20:25 Active IV Insertion STAT Care 09/14/23 20:25 Active NPO (ED) STAT Care 09/14/23 20:26 Active POCT Glucose Check STAT Care 09/14/23 20:25 Active Pulse Oximetry (ED) STAT Care 09/14/23 20:25 Active HEAD WITHOUT CONTRAST [CT] Stat Exams 09/14/23 21:07 Taken CBC W DIFF Stat Lab 09/14/23 20:30 Completed CMP Stat Lab 09/14/23 20:30 Completed CULTURE,URINE Stat Lab 09/14/23 Received POCT GLUCOSE Stat Lab 09/14/23 20:40 Completed POTASSIUM, URINE RANDOM Stat Lab 09/14/23 21:11 Completed Sodium, Urine Stat Lab 09/14/23 21:11 Completed UA W/RFX UR CULTURE Stat Lab 09/14/23 Completed Medication Summary Generic Name Dose Route Start Last Admin Trade Name Freq PRN Reason Stop Dose Admin Sodium Chloride 1,000 mls @ 100 mls/hr 09/14/23 21:15 09/14/23 21:13 Sodium Chloride 0.9% 1000 Ml IV 10/14/23 21:14 100 mls/hr .Q10H JEET Administration Discontinued Medications Generic Name Dose Route Start Last Admin Trade Name Darcy PRN Reason Stop Dose Admin Ceftriaxone Sodium 1 gm in 100 mls @ 200 mls/hr 09/14/23 21:09 09/14/23 21:15 Rocephin 1 Gm / 100 Ml Nacl IV 09/14/23 21:38 200 ml/hr STAT ONE 200 mls/hr Administration Ceftriaxone Sodium Confirm 09/14/23 21:11 Rocephin 1 Gm / 100 Ml Nacl Administered 09/14/23 21:12 Dose 1 gm in 100 mls @ ud IV .STK-MED ONE Lab/Rad Data: Laboratory Result Diagrams 09/14/23 20:30 09/14/23 20:30 Laboratory Results 09/14/23 09/14/23 09/14/23 Range/Units Unknown 21:11 20:40 WBC (3.98-10.04) x10^3/uL RBC (3.93-5.22) x10^6/uL Hgb (11.2-15.7) g/dL Hct (34.1-44.9) % MCV (79.4-94.8) fL MCH (25.6-32.2) pg MCHC (32.2-35.5) g/dL RDW (11.7-14.4) % Plt Count (182-369) x10^3/uL MPV (9.4-12.3) fL Gran % (34.0-71.1) % Immature Gran % (Auto) (0.001-0.429) % Nucleat RBC Rel Count (0.00-0.2) % Eos # (Auto) (0.04-0.36) x10^3/uL Immature Gran # (Auto) (0.001-0.031) x10^3u/L Absolute Lymphs (auto) (1.18-3.74) x10^3/uL Absolute Monos (auto) (0.24-0.86) x10^3/uL Absolute Nucleated RBC (0.00-0.012) x10^3u/L Lymphocytes % (19.3-51.7) % Monocytes % (4.7-12.5) % Eosinophils % (0.7-5.8) % Basophils % (0.1-1.2) % Absolute Granulocytes (1.56-6.13) x10^3/uL Basophils # (0.01-0.08) x10^3/uL Sodium (135-145) mmol/L Potassium (3.5-5.1) mmol/L Chloride (98-107) mmol/L Carbon Dioxide (22-30) mmol/L Anion Gap (5-15) MEQ/L BUN (7-17) mg/dL Creatinine (0.52-1.04) mg/dL Estimated GFR ML/MIN Glucose (74-106) mg/dL POC Glucometer 136 H (74 to 106) mg/dL Calcium (8.4-10.2) mg/dL Total Bilirubin (0.2-1.3) mg/dL AST (14-36) U/L ALT (0-35) U/L Alkaline Phosphatase (38-126) U/L Ammonia (9-30) umol/L Serum Total Protein (6.3-8.2) g/dL Albumin (3.5-5.0) g/dL Urine Color Yellow (Yellow) Urine Appearance Clear (Clear) Urine pH 6.0 (4.6-8.0) Ur Specific [place] 1.010 (1.005-1.030) Urine Protein Negative (Negative) Urine Glucose (UA) Negative (Negative) mg/dL Urine Ketones Negative (Negative) Urine Blood Trace (Negative) Urine Nitrite Negative (Negative) Urine Bilirubin Negative (Negative) Urine Urobilinogen 0.2 (0.2) mg/dL Ur Leukocyte Esterase Small A (Negative) U Hyaline Cast (Auto) NONE SEEN (0-2) /LPF Urine Microscopic RBC 0-2 (0-5) /HPF Urine Microscopic WBC 6-10 A (0-5) /HPF Ur Epithelial Cells Rare (None Seen) /HPF Urine Bacteria None Seen (None Seen) /HPF Urine Culture Reflexed YES (NO) Urine Sodium 10 L (30-90) mmol/L Urine Potassium 28.2 H (0.1-0.7) mmol/L 09/14/23 09/14/23 09/14/23 Range/Units 20:30 20:30 20:30 WBC 11.9 H (3.98-10.04) x10^3/uL RBC 4.42 (3.93-5.22) x10^6/uL Hgb 12.5 (11.2-15.7) g/dL Hct 35.8 (34.1-44.9) % MCV 81.0 (79.4-94.8) fL MCH 28.3 (25.6-32.2) pg MCHC 34.9 (32.2-35.5) g/dL RDW 13.1 (11.7-14.4) % Plt Count 286 (182-369) x10^3/uL MPV 10.4 (9.4-12.3) fL Gran % 74.2 H (34.0-71.1) % Immature Gran % (Auto) 0.4 (0.001-0.429) % Nucleat RBC Rel Count 0.0 (0.00-0.2) % Eos # (Auto) 0.03 L (0.04-0.36) x10^3/uL Immature Gran # (Auto) 0.05 H (0.001-0.031) x10^3u/L Absolute Lymphs (auto) 1.88 (1.18-3.74) x10^3/uL Absolute Monos (auto) 1.06 H (0.24-0.86) x10^3/uL Absolute Nucleated RBC 0.00 (0.00-0.012) x10^3u/L Lymphocytes % 15.8 L (19.3-51.7) % Monocytes % 8.9 (4.7-12.5) % Eosinophils % 0.3 L (0.7-5.8) % Basophils % 0.4 (0.1-1.2) % Absolute Granulocytes 8.84 H (1.56-6.13) x10^3/uL Basophils # 0.05 (0.01-0.08) x10^3/uL Sodium 115 L* (135-145) mmol/L Potassium 3.8 (3.5-5.1) mmol/L Chloride 84 L (98-107) mmol/L Carbon Dioxide 22 (22-30) mmol/L Anion Gap 13.1 (5-15) MEQ/L BUN 18 H (7-17) mg/dL Creatinine 1.31 H (0.52-1.04) mg/dL Estimated GFR 43.8 ML/MIN Glucose 126 H (74-106) mg/dL POC Glucometer (74 to 106) mg/dL Calcium 9.5 (8.4-10.2) mg/dL Total Bilirubin 0.70 (0.2-1.3) mg/dL AST 41 H (14-36) U/L ALT 28 (0-35) U/L Alkaline Phosphatase 81 (38-126) U/L Ammonia < 9 L (9-30) umol/L Serum Total Protein 7.5 (6.3-8.2) g/dL Albumin 4.7 (3.5-5.0) g/dL Urine Color (Yellow) Urine Appearance (Clear) Urine pH (4.6-8.0) Ur Specific [place] (1.005-1.030) Urine Protein (Negative) Urine Glucose (UA) (Negative) mg/dL Urine Ketones (Negative) Urine Blood (Negative) Urine Nitrite (Negative) Urine Bilirubin (Negative) Urine Urobilinogen (0.2) mg/dL Ur Leukocyte Esterase (Negative) U Hyaline Cast (Auto) (0-2) /LPF Urine Microscopic RBC (0-5) /HPF Urine Microscopic WBC (0-5) /HPF Ur Epithelial Cells (None Seen) /HPF Urine Bacteria (None Seen) /HPF Urine Culture Reflexed (NO) Urine Sodium (30-90) mmol/L Urine Potassium (0.1-0.7) mmol/L - Progress Progress: improved, re-examined Progress Note: 09/14/23 20:37 This patient's medical issue is 1 of moderate complexity. The level of complexity in the workup performed is based on review of the patient's past medical history, review of patient's medication list, review patient drug allergy list, history present illness and physical findings on examination. The workup in this patient includes placement of intravenous line, twelve-lead EKG, urinalysis, CBC, CMP, CT scan with and without contrast of the head as well as CT angiography of the neck. Differential diagnosis includes TIA, new infarct, dehydration, arrhythmia, urinary tract infection 09/14/23 21:39 Patient's mother stated that the patient was placed on a sodium restriction diet. Neither the patient or the mother knows exactly why that is. 09/14/23 22:15 I interpreted the patient's laboratory data results. The patient has mild leukocytosis, UTI and hyponatremia. I believe the hyponatremia is the cause of her underlying confusion. CT scan of the head without contrast was interpreted by the radiologist. The impression states compared to MRI of the brain dated 08/31/2022, there is stable old lacunar infarct of the left basal ganglia. There is no new or acute findings present. 09/14/23 22:26 I spoke with telehospitalist Dr. Jeff. I reviewed the patient history, presenting complaint, laboratory, EKG and radiographic study results. Patient will be admitted into the hospital and patient will receive the remainder of the normal saline that is running now as a bolus. I will order a BMP and a urine sodium which will be called to him when the patient is on the floor. Counseled pt/family regarding: lab results, diagnosis, rad results Medical Desision Making - Independent Historian Additional History obtained from: Mother - Diagnostic Testing Diagnostic test were ordered, analyzed, and reviewed by me: Yes Radiological Interpretation: Reviewed by me, Teleradiologist Report - Risk of complications The pt has a high risk of morbidity or mortality based on: Decision regarding ho spitilization or escalation of hosp level of care - Departure Departure Disposition: In-patient Admission Clinical Impression: Confusion, Hyponatremia, UTI (urinary tract infection) Condition: Stable Critical Care Time: No Referrals: MEETA HOBBS MD [Primary Care Provider] - Follow up/PCP as directed
[2023-09-14 20:38] LABS: Absolute Neutrophil Ct (ANC) 8.84 x10^3/uL (1.56-6.13); BASOPHIL % 0.4 % (0.1-1.2); Basophil (Absolute #) 0.05 x10^3/uL (0.01-0.08); Eosinophil % 0.3 % (0.7-5.8); Eosinophil (Absolute #) 0.03 x10^3/uL (0.04-0.36); Hematocrit 35.8 % (34.1-44.9); Hemoglobin 12.5 g/dL (11.2-15.7); IMMATURE GRAN # 0.05 x10^3u/L (0.001-0.031); IMMATURE GRAN % 0.4 % (0.001-0.429); Lymphocyte (Absolute #) 1.88 x10^3/uL (1.18-3.74); Lymphocytes % 15.8 % (19.3-51.7); Mean Corpuscular Hemoglobin 28.3 pg (25.6-32.2); Mean Corpuscular Hgb Concent. 34.9 g/dL (32.2-35.5); Mean Platelet Volume 10.4 fL (9.4-12.3); Monocyte (Absolute #) 1.06 x10^3/uL (0.24-0.86); Monocytes % 8.9 % (4.7-12.5); Neutrophil % 74.2 % (34.0-71.1); Platelet Count 286 x10^3/uL (182-369); Red Blood Count 4.42 x10^6/uL (3.93-5.22); Red Cell Distribution Width 13.1 % (11.7-14.4); White Blood Count 11.9 x10^3/uL (3.98-10.04)
[2023-09-14 20:43] LABS: ADD URINE CULTURE? YES (NO); Appearance Clear (Clear); Bacteria None Seen /HPF (None Seen); Bilirubin Negative (Negative); Blood Trace (Negative); Epithelial Cells Rare /HPF (None Seen); Glucose, Urine Negative (Negative); Hyaline Casts NONE SEEN /LPF (0-2); Ketones Negative (Negative); Leukocyte Esterase Small (Negative); Nitrite Negative (Negative); Protein,Urine Dip Negative (Negative); RBC 0-2 /HPF (0-5); Urobilinogen 0.2 mg/dL (0.2)
[2023-09-14 20:53] LABS: ALBUMIN 4.7 g/dL (3.5-5.0); ANION GAP 13.1 MEQ/L (5-15); BILIRUBIN,TOTAL 0.7 mg/dL (0.2-1.3); Calcium 9.5 mg/dL (8.4-10.2); Creatinine 1 1.31 mg/dL (0.52-1.04); EST GLOMERULAR FILTRATION RATE 43.8 ML/MIN; Potassium 3.8 mmol/L (3.5-5.1); Total Protein 7.5 g/dL (6.3-8.2)
[2023-09-14] MEDS ORDERED: ROCEPHIN 1 GM / 100 ML NaCl 1 GM/100 ML IVPB IV ONE (21:11)
[2023-09-14] MEDS: Sodium Chloride 0.9% 1000 ML 1,000 ML IV SCH (21:13)
[2023-09-14] MEDS: ROCEPHIN 1 GM / 100 ML NaCl 1 GM/100 ML IVPB IV ONE (21:15)
[2023-09-14 21:18] LABS: POTASSIUM, URINE RANDOM 28.2 mmol/L (0.1-0.7)
[2023-09-15] MEDS ORDERED: Zofran 4 MG/2 ML VIAL IV PRN (00:13)
[2023-09-15] MEDS ORDERED: TYLENOL 325 MG PO PRN (00:13)
[2023-09-15 01:44] LABS: ANION GAP 13.8 MEQ/L (5-15); Calcium 8.9 mg/dL (8.4-10.2); Creatinine 1 0.97 mg/dL (0.52-1.04); EST GLOMERULAR FILTRATION RATE 62.9 ML/MIN; Potassium 3.5 mmol/L (3.5-5.1)
--- NOTE | 2023-09-15 02:57 | PCM.HP ---
History of Present Illness - Chief Complaint Chief Complaint: confusion Date: 09/15/23 History of Present Illness: 68 y/o F with h/o HTN, remote TIA, who presents with confusion. Patient initially is unclear why she was brought to the hospital, but eventually states that for the past few days she has been having some issues with her memory, as well as eating poorly, and decreased urine output. Today she has had diarrhea 4 times. Denies lightheadedness or dizziness, fevers, syncope, sensory or motor changes, sick contacts, or dysuria.No recent changes to her medications. No prior episodes of similar symptoms. She lives alone at baseline, takes care of her ADLs and IADLs herself. Since getting some IV fluids in the ED, she feels that her confusion is improving, although she does not feel totally herself yet. - Review of Systems Constitutional: No Fever, No Chills, No Lethargy, No Malaise, No Night Sweats Eyes: No Vision Changes, No Double Vision Ears, Nose, & Throat: No Nose Congestion, No Throat Pain Respiratory: No Cough, No Short Of Breath Cardiac: No Chest Pain, No Palpitations, No Syncope Abdominal/Gastrointestinal: Diarrhea, No Abdominal Pain, No Nausea, No Melena, No Dysphagia Genitourinary Symptoms: No Dysuria, No Hematuria Musculoskeletal: No Symptoms All Other Systems: Reviewed and Negative Medications & Allergies Home Medications: Home Medication List Alendronate Sodium 70 mg [Fosamax 70 MG] 70 mg PO Q7D@0600 09/29/19 [History Confirmed 09/14/23] Aspirin EC 81 mg [Ecotrin 81 mg] 81 mg PO DAILY 09/29/19 [History Confirmed 09/14/23] Amlodipine Besylate 5 mg [Norvasc 5 mg] 1 tab PO DAILY 01/13/22 [History Confirmed 09/14/23] Atorvastatin Calcium [Lipitor] 1 tab PO HS 01/13/22 [History Confirmed 09/14/23] Metoprolol Tartrate 50 mg [Lopressor 50 MG] 1 tab PO BID 01/13/22 [History Confirmed 09/14/23] Montelukast Sodium 10 mg [Singulair 10 MG] 10 mg PO DAILY 09/14/23 [History Confirmed 09/14/23] Spironolactone 50 mg PO DAILY PRN PRN 09/14/23 [History Confirmed 09/14/23] Allergies/Adverse Reactions: Allergies Allergy/AdvReac Type Severity Reaction Status Date / Time No Known Drug Allergies Allergy Verified 01/13/22 14:04 - Past Medical History Past Medical History: Yes Neurological History: TIA ENT History: No Pertinent History Cardiac History: Aneurysm, High Cholesterol, Hypertension Respiratory History: COPD, Emphysema, Tuberculosis Endocrine Medical History: No Pertinent History Musculoskelatal History: Arthritis, Rheumatoid Arthritis GI Medical History: No Pertinent History History: No Pertinent History Pyscho-Social History: No Pertinent History Reproductive Disorders: No Pertinent History Comment: 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, 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 ,4 ministrokes-TIA, LLE blood clot - Past Surgical History Past Surgical History: Yes Neuro Surgical History: No Pertinent History Cardiac History: No Pertinent History Respiratory Surgery: No Pertinent History GI Surgical History: No Pertinent History Genitourinary Surgical Hx: No Pertinent History Musculskeletal Surgical Hx: Orthopedic Surgery Female Surgical History: Tubal Ligation Other Surgical History: cyst on ovary,left wrist with metal placed Significant Family History: no pertinent family hx - Social History Smoking Status: Former smoker Exposure to second hand smoke: No Alcohol: None Drug Use: none - Social Determinants of Health Will the patient participate in the screening: Yes Do you worry about a steady place to live?: No Do you have any problems with any of the following?: No known problems In the past 12 months,have you had to go without utilities?: No Have you or anyone in your house had to go without enough: No Transportation Issues: No Has anyone in your support network made you feel unsafe?: No Does the patient want assistance with any of the above?: No - Physical Exam Vital Signs: Vital Signs - 24 hr Temp Pulse Resp BP BP Pulse Ox 09/15/23 00:19 98.2 F 79 16 130/74 97 09/15/23 00:18 98.2 F 79 16 130/74 97 09/14/23 23:30 78 27 H 115/98 95 09/14/23 23:00 81 19 135/82 94 L 09/14/23 22:30 83 26 H 137/80 96 09/14/23 22:00 80 25 H 141/77 94 L 09/14/23 21:41 83 20 156/90 95 09/14/23 21:00 74 19 138/74 95 09/14/23 20:35 75 23 134/76 94 L 09/14/23 20:34 82 15 95 09/14/23 20:30 79 26 H 95 09/14/23 20:25 96 09/14/23 20:20 83 27 H 94 L 09/14/23 20:16 97.8 F 90 20 137/76 92 L 09/14/23 20:10 82 21 98 09/14/23 20:07 92 L General Appearance: no apparent distress Neurologic Exam: alert, oriented x 3, cooperative (although at times slow to answer) Eye Exam: eyes nml inspection Respiratory Exam: normal breath sounds, lungs clear, No respiratory distress, No accessory muscle use Cardiovascular Exam: regular rate/rhythm, normal heart sounds, No edema Gastrointestinal/Abdomen Exam: normal bowel sounds Results - Labs Lab/Micro Results: Lab Results-Last 24 Hours 09/14/23 09/14/23 09/14/23 Range/Units 20:30 20:30 20:30 WBC 11.9 H (3.98-10.04) x10^3/uL RBC 4.42 (3.93-5.22) x10^6/uL Hgb 12.5 (11.2-15.7) g/dL Hct 35.8 (34.1-44.9) % MCV 81.0 (79.4-94.8) fL MCH 28.3 (25.6-32.2) pg MCHC 34.9 (32.2-35.5) g/dL RDW 13.1 (11.7-14.4) % Plt Count 286 (182-369) x10^3/uL MPV 10.4 (9.4-12.3) fL Gran % 74.2 H (34.0-71.1) % Immature Gran % (Auto) 0.4 (0.001-0.429) % Nucleat RBC Rel Count 0.0 (0.00-0.2) % Eos # (Auto) 0.03 L (0.04-0.36) x10^3/uL Immature Gran # (Auto) 0.05 H (0.001-0.031) x10^3u/L Absolute Lymphs (auto) 1.88 (1.18-3.74) x10^3/uL Absolute Monos (auto) 1.06 H (0.24-0.86) x10^3/uL Absolute Nucleated RBC 0.00 (0.00-0.012) x10^3u/L Lymphocytes % 15.8 L (19.3-51.7) % Monocytes % 8.9 (4.7-12.5) % Eosinophils % 0.3 L (0.7-5.8) % Basophils % 0.4 (0.1-1.2) % Absolute Granulocytes 8.84 H (1.56-6.13) x10^3/uL Basophils # 0.05 (0.01-0.08) x10^3/uL Sodium 115 L* (135-145) mmol/L Potassium 3.8 (3.5-5.1) mmol/L Chloride 84 L (98-107) mmol/L Carbon Dioxide 22 (22-30) mmol/L Anion Gap 13.1 (5-15) MEQ/L BUN 18 H (7-17) mg/dL Creatinine 1.31 H (0.52-1.04) mg/dL Estimated GFR 43.8 ML/MIN Glucose 126 H (74-106) mg/dL POC Glucometer (74 to 106) mg/dL Calcium 9.5 (8.4-10.2) mg/dL Total Bilirubin 0.70 (0.2-1.3) mg/dL AST 41 H (14-36) U/L ALT 28 (0-35) U/L Alkaline Phosphatase 81 (38-126) U/L Ammonia < 9 L (9-30) umol/L Serum Total Protein 7.5 (6.3-8.2) g/dL Albumin 4.7 (3.5-5.0) g/dL Urine Color (Yellow) Urine Appearance (Clear) Urine pH (4.6-8.0) Ur Specific Blair (1.005-1.030) Urine Protein (Negative) Urine Glucose (UA) (Negative) mg/dL Urine Ketones (Negative) Urine Blood (Negative) Urine Nitrite (Negative) Urine Bilirubin (Negative) Urine Urobilinogen (0.2) mg/dL Ur Leukocyte Esterase (Negative) U Hyaline Cast (Auto) (0-2) /LPF Urine Microscopic RBC (0-5) /HPF Urine Microscopic WBC (0-5) /HPF Ur Epithelial Cells (None Seen) /HPF Urine Bacteria (None Seen) /HPF Urine Culture Reflexed (NO) Urine Sodium (30-90) mmol/L Urine Potassium (0.1-0.7) mmol/L 09/14/23 09/14/23 09/14/23 Range/Units 20:40 21:11 Unknown WBC (3.98-10.04) x10^3/uL RBC (3.93-5.22) x10^6/uL Hgb (11.2-15.7) g/dL Hct (34.1-44.9) % MCV (79.4-94.8) fL MCH (25.6-32.2) pg MCHC (32.2-35.5) g/dL RDW (11.7-14.4) % Plt Count (182-369) x10^3/uL MPV (9.4-12.3) fL Gran % (34.0-71.1) % Immature Gran % (Auto) (0.001-0.429) % Nucleat RBC Rel Count (0.00-0.2) % Eos # (Auto) (0.04-0.36) x10^3/uL Immature Gran # (Auto) (0.001-0.031) x10^3u/L Absolute Lymphs (auto) (1.18-3.74) x10^3/uL Absolute Monos (auto) (0.24-0.86) x10^3/uL Absolute Nucleated RBC (0.00-0.012) x10^3u/L Lymphocytes % (19.3-51.7) % Monocytes % (4.7-12.5) % Eosinophils % (0.7-5.8) % Basophils % (0.1-1.2) % Absolute Granulocytes (1.56-6.13) x10^3/uL Basophils # (0.01-0.08) x10^3/uL Sodium (135-145) mmol/L Potassium (3.5-5.1) mmol/L Chloride (98-107) mmol/L Carbon Dioxide (22-30) mmol/L Anion Gap (5-15) MEQ/L BUN (7-17) mg/dL Creatinine (0.52-1.04) mg/dL Estimated GFR ML/MIN Glucose (74-106) mg/dL POC Glucometer 136 H (74 to 106) mg/dL Calcium (8.4-10.2) mg/dL Total Bilirubin (0.2-1.3) mg/dL AST (14-36) U/L ALT (0-35) U/L Alkaline Phosphatase (38-126) U/L Ammonia (9-30) umol/L Serum Total Protein (6.3-8.2) g/dL Albumin (3.5-5.0) g/dL Urine Color Yellow (Yellow) Urine Appearance Clear (Clear) Urine pH 6.0 (4.6-8.0) Ur Specific Blair 1.010 (1.005-1.030) Urine Protein Negative (Negative) Urine Glucose (UA) Negative (Negative) mg/dL Urine Ketones Negative (Negative) Urine Blood Trace (Negative) Urine Nitrite Negative (Negative) Urine Bilirubin Negative (Negative) Urine Urobilinogen 0.2 (0.2) mg/dL Ur Leukocyte Esterase Small A (Negative) U Hyaline Cast (Auto) NONE SEEN (0-2) /LPF Urine Microscopic RBC 0-2 (0-5) /HPF Urine Microscopic WBC 6-10 A (0-5) /HPF Ur Epithelial Cells Rare (None Seen) /HPF Urine Bacteria None Seen (None Seen) /HPF Urine Culture Reflexed YES (NO) Urine Sodium 10 L (30-90) mmol/L Urine Potassium 28.2 H (0.1-0.7) mmol/L /11/30 Range/Units 01:30 WBC (3.98-10.04) x10^3/uL RBC (3.93-5.22) x10^6/uL Hgb (11.2-15.7) g/dL Hct (34.1-44.9) % MCV (79.4-94.8) fL MCH (25.6-32.2) pg MCHC (32.2-35.5) g/dL RDW (11.7-14.4) % Plt Count (182-369) x10^3/uL MPV (9.4-12.3) fL Gran % (34.0-71.1) % Immature Gran % (Auto) (0.001-0.429) % Nucleat RBC Rel Count (0.00-0.2) % Eos # (Auto) (0.04-0.36) x10^3/uL Immature Gran # (Auto) (0.001-0.031) x10^3u/L Absolute Lymphs (auto) (1.18-3.74) x10^3/uL Absolute Monos (auto) (0.24-0.86) x10^3/uL Absolute Nucleated RBC (0.00-0.012) x10^3u/L Lymphocytes % (19.3-51.7) % Monocytes % (4.7-12.5) % Eosinophils % (0.7-5.8) % Basophils % (0.1-1.2) % Absolute Granulocytes (1.56-6.13) x10^3/uL Basophils # (0.01-0.08) x10^3/uL Sodium 120 L* (135-145) mmol/L Potassium 3.5 (3.5-5.1) mmol/L Chloride 90 L (98-107) mmol/L Carbon Dioxide 20 L (22-30) mmol/L Anion Gap 13.8 (5-15) MEQ/L BUN 16 (7-17) mg/dL Creatinine 0.97 (0.52-1.04) mg/dL Estimated GFR 62.9 ML/MIN Glucose 109 H (74-106) mg/dL POC Glucometer (74 to 106) mg/dL Calcium 8.9 (8.4-10.2) mg/dL Total Bilirubin (0.2-1.3) mg/dL AST (14-36) U/L ALT (0-35) U/L Alkaline Phosphatase (38-126) U/L Ammonia (9-30) umol/L Serum Total Protein (6.3-8.2) g/dL Albumin (3.5-5.0) g/dL Urine Color (Yellow) Urine Appearance (Clear) Urine pH (4.6-8.0) Ur Specific Blair (1.005-1.030) Urine Protein (Negative) Urine Glucose (UA) (Negative) mg/dL Urine Ketones (Negative) Urine Blood (Negative) Urine Nitrite (Negative) Urine Bilirubin (Negative) Urine Urobilinogen (0.2) mg/dL Ur Leukocyte Esterase (Negative) U Hyaline Cast (Auto) (0-2) /LPF Urine Microscopic RBC (0-5) /HPF Urine Microscopic WBC (0-5) /HPF Ur Epithelial Cells (None Seen) /HPF Urine Bacteria (None Seen) /HPF Urine Culture Reflexed (NO) Urine Sodium (30-90) mmol/L Urine Potassium (0.1-0.7) mmol/L - Radiology Impressions Radiology Exams & Impressions: Radiology Procedures Category Date Time Status HEAD WITHOUT CONTRAST [CT] Stat Exams 09/14/23 21:[address] Head no changes from baseline Assessment/Plan (1) Hyponatremia Current Visit: Yes Status: Acute Assessment & Plan: 68 y/o F with h/o HTN, remote TIA, here with hyponatremia causing mild confusion, with mild SATISH and possible acute cystitis.. ## Hypovolemic hyponatremia - likely from recent poor PO intake and diarrhea, confirmed by low urine sodium, and supported by SATISH. Also, responded well to initial 1L NS bolus in ED, with improvement in Na from 115 -> 120. Mildly symptomatic, but severe by numbers. I suspect this is more chronic than acute. And there are no severe neuro symptoms. As such, want a gentle correction. - continue NS 100 ml/hr - follow Na q4h, goal rise in Na 8-10 today - pending urine Na to ensure coming up with IV fluids - hold home spironolactone - neuro checks ## Acute kidney injury - secondary to hypovolemia. Already improving after initial fluid bolus in ED, down from 1.3 to her baseline 0.9. - continue IV fluids as above ## Possible acute cystitis - mild pyuria on UA, but patient denies dysuria. May be asymptomatic bacteruria. - follow up urine culture - continue Rocephin 1 g IV q24h for now, but if as patient's confusion improves, she agrees that did not and does not have dysuria, can stop antibiotics ## Hypertension - BP controlled. - continue home amlodipine, metoprolol tartrate - hold spironolactone due to hypovolemia above. Code status: Full code Diet: Regular Prophylaxis: ambulate Code(s): E87.1 - HYPO-OSMOLALITY AND HYPONATREMIA Telemedicine Encounter - Telemedicine Encounter Telemedicine Encounter: The entirety of this encounter was performed via Telemedicine"
[2023-09-15 06:09] LABS: Absolute Neutrophil Ct (ANC) 5.34 x10^3/uL (1.56-6.13); BASOPHIL % 0.4 % (0.1-1.2); Basophil (Absolute #) 0.03 x10^3/uL (0.01-0.08); Eosinophil % 0.5 % (0.7-5.8); Eosinophil (Absolute #) 0.04 x10^3/uL (0.04-0.36); Hematocrit 34.4 % (34.1-44.9); Hemoglobin 11.9 g/dL (11.2-15.7); IMMATURE GRAN # 0.02 x10^3u/L (0.001-0.031); IMMATURE GRAN % 0.3 % (0.001-0.429); Lymphocyte (Absolute #) 1.56 x10^3/uL (1.18-3.74); Lymphocytes % 19.8 % (19.3-51.7); Mean Cell Volume 80.4 fL (79.4-94.8); Mean Corpuscular Hemoglobin 27.8 pg (25.6-32.2); Mean Corpuscular Hgb Concent. 34.6 g/dL (32.2-35.5); Mean Platelet Volume 10.2 fL (9.4-12.3); Monocyte (Absolute #) 0.87 x10^3/uL (0.24-0.86); Monocytes % 11.1 % (4.7-12.5); Neutrophil % 67.9 % (34.0-71.1); Platelet Count 265 x10^3/uL (182-369); Red Blood Count 4.28 x10^6/uL (3.93-5.22); Red Cell Distribution Width 13.3 % (11.7-14.4); White Blood Count 7.9 x10^3/uL (3.98-10.04)
[2023-09-15 06:21] LABS: ALBUMIN 4.1 g/dL (3.5-5.0); ANION GAP 12.4 MEQ/L (5-15); BILIRUBIN,TOTAL 0.6 mg/dL (0.2-1.3); Calcium 8.8 mg/dL (8.4-10.2); Creatinine 1 0.81 mg/dL (0.52-1.04); Total Protein 6.7 g/dL (6.3-8.2)
--- NOTE | 2023-09-15 07:12 | XRAY ---
Indication: Confusion. Multiple contiguous axial images obtained through the head without contrast. Comparison: MRI brain August 31, 2022 Ventriculoseptal pattern appears symmetric. Stable left basal ganglia remote lacunar infarct. No acute intracranial hemorrhage, abnormal extra-axial fluid collection, or mass effect. Fourth ventricle is midline without hydrocephalus. Jensen-white matter differentiation preserved. Bony calvarium intact. Visualized paranasal sinuses and mastoid vessels are clear. Impression: Stable remote lacunar infarct left basal ganglia. No new/acute intracranial abnormalities.
[2023-09-15] MEDS: Singulair 10 MG PO SCH (09:59)
[2023-09-15] MEDS: Lopressor 50 MG PO SCH (09:59)
[2023-09-15] MEDS: ECOTRIN 81 MG PO SCH (09:59)
[2023-09-15] MEDS: NORVASC 5 MG PO SCH (09:59)
[2023-09-15 13:52] LABS: ALBUMIN 3.8 g/dL (3.5-5.0); ANION GAP 9.6 MEQ/L (5-15); BILIRUBIN,TOTAL 0.4 mg/dL (0.2-1.3); Calcium 8.5 mg/dL (8.4-10.2); Creatinine 1 1.17 mg/dL (0.52-1.04); EST GLOMERULAR FILTRATION RATE 50.2 ML/MIN; MAGNESIUM 1.8 mg/dL (1.6-2.3); Total Protein 6.3 g/dL (6.3-8.2)
[2023-09-15] MEDS: ZOCOR 20MG PO SCH (22:55)
[2023-09-15] MEDS: ROCEPHIN 1 GM / 100 ML NaCl 1 GM/100 ML IVPB IV SCH (22:55)
[2023-09-16 03:35] VITALS: O2SAT 95
[2023-09-16 06:04] LABS: Hematocrit 34.6 % (34.1-44.9); Hemoglobin 11.5 g/dL (11.2-15.7); Mean Cell Volume 84.6 fL (79.4-94.8); Mean Corpuscular Hemoglobin 28.1 pg (25.6-32.2); Mean Corpuscular Hgb Concent. 33.2 g/dL (32.2-35.5); Mean Platelet Volume 10.5 fL (9.4-12.3); Platelet Count 251 x10^3/uL (182-369); Red Blood Count 4.09 x10^6/uL (3.93-5.22); Red Cell Distribution Width 14.2 % (11.7-14.4); White Blood Count 8.3 x10^3/uL (3.98-10.04)
[2023-09-16 07:26] VITALS: BP 131/77; PULSE 75; TEMP 98.2
[2023-09-16 08:03] LABS: ALBUMIN 3.6 g/dL (3.5-5.0); ANION GAP 11.1 MEQ/L (5-15); BILIRUBIN,TOTAL 0.3 mg/dL (0.2-1.3); Calcium 8.4 mg/dL (8.4-10.2); Creatinine 1 0.68 mg/dL (0.52-1.04); EST GLOMERULAR FILTRATION RATE 93.6 ML/MIN; Potassium 3.7 mmol/L (3.5-5.1); Total Protein 6.1 g/dL (6.3-8.2)
[2023-09-16 08:15] VITALS: RESP 18
--- NOTE | 2023-09-16 08:45 | PCM.DS ---
Discharge Summary Date of Admission: 09/15/23 00:01 Date of Discharge: 09/16/23 Admitting Physician: EDMUND TANNER MD Primary Care Provider: MEETA HOBBS Allergies Allergies No Known Drug Allergies Allergy (Verified 01/13/22 14:04) Hospital Summary - Hospital Course Hospital Course: 09/16/23 68 y/o F with h/o HTN, and remote TIA. She presented on 09/15/23 with confusion. Patient initially is unclear why she was brought to the hospital, but eventually states that for the past few days she has been having some issues with her memory, as well as eating poorly, and decreased urine output. Prior to arrival she had diarrhea 4 times however she has had no further episodes since admission. Denies lightheadedness or dizziness, fevers, syncope, sensory or motor changes, sick contacts, or dysuria. No recent changes to her medications. No prior episodes of similar symptoms. She lives alone at baseline, takes care of her ADLs and IADLs herself. Hyponatremia has resolved with IV fluids. She has had no further diarrhea episodes and denies N/V or abd pain. She is walking around the room well. She is alert and oriented x3. She feels she is ready to go home. She denies any further concerns. - Vitals & Intake/Output Vital Signs: Vital Signs Temperature 98.2 F 09/16/23 07:00 Pulse Rate 75 09/16/23 07:00 Respiratory Rate 18 09/16/23 08:00 Blood Pressure 131/77 09/16/23 07:00 O2 Sat by Pulse Oximetry 95 09/16/23 07:00 Intake & Output: Intake & Output 09/13/23 09/14/23 09/15/23 09/16/23 11:59 11:59 11:59 11:59 Intake Total 2450 1810 Output Total 1125 3800 Balance 1325 -1990 Weight 61.1 kg - Lab Result Diagrams: 09/16/23 05:31 09/16/23 05:31 Lab Results-Last 24 Hrs: Lab Results-Last 24 Hours 09/15/23 09/16/23 09/16/23 Range/Units 13:35 05:31 05:31 WBC 8.3 (3.98-10.04) x10^3/uL RBC 4.09 (3.93-5.22) x10^6/uL Hgb 11.5 (11.2-15.7) g/dL Hct 34.6 (34.1-44.9) % MCV 84.6 (79.4-94.8) fL MCH 28.1 (25.6-32.2) pg MCHC 33.2 (32.2-35.5) g/dL RDW 14.2 (11.7-14.4) % Plt Count 251 (182-369) x10^3/uL MPV 10.5 (9.4-12.3) fL Sodium 132 L 137 (135-145) mmol/L Potassium 4.0 3.7 (3.5-5.1) mmol/L Chloride 103 111 H (98-107) mmol/L Carbon Dioxide 24 19 L (22-30) mmol/L Anion Gap 9.6 11.1 (5-15) MEQ/L BUN 15 9 (7-17) mg/dL Creatinine 1.17 H 0.68 (0.52-1.04) mg/dL Estimated GFR 50.2 93.6 ML/MIN Glucose 109 H 89 (74-106) mg/dL Calcium 8.5 8.4 (8.4-10.2) mg/dL Magnesium 1.8 (1.6-2.3) mg/dL Total Bilirubin 0.40 0.30 (0.2-1.3) mg/dL AST 28 29 (14-36) U/L ALT 23 22 (0-35) U/L Alkaline Phosphatase 64 62 (38-126) U/L Serum Total Protein 6.3 6.1 L (6.3-8.2) g/dL Albumin 3.8 3.6 (3.5-5.0) g/dL Micro Results-Entire Visit: Microbiology 09/14/23 Unknown Urine Culture - Preliminary Clean Catch Midstream NO GROWTH TO DATE - Radiology Exams Ordered Rad Exams-Entire Visit: Radiology Procedures Category Date Time Status HEAD WITHOUT CONTRAST [CT] Stat Exams 09/14/23 21:07 Completed Discharge Exam General Appearance: no apparent distress, alert Neurologic Exam: alert, oriented x 3, cooperative, normal mood/affect, nml cerebellar function, sensation nml, No motor deficits Eye Exam: PERRL, EOMI, eyes nml inspection Ears, Nose, Throat Exam: normal ENT inspection, pharynx normal, moist mucous membranes Neck Exam: normal inspection, non-tender, supple, full range of motion Respiratory Exam: normal breath sounds, lungs clear, No respiratory distress Cardiovascular Exam: regular rate/rhythm, normal heart sounds Gastrointestinal/Abdomen Exam: soft, No tenderness, No mass Pelvic Exam: deferred Rectal Exam: deferred Back Exam: normal inspection, normal range of motion, No CVA tenderness, No vertebral tenderness Extremity Exam: normal inspection, normal range of motion Skin Exam: normal color, warm, dry Final Diagnosis/Problem List - Final Discharge Diagnosis/Problem (1) Hyponatremia Current Visit: Yes Status: Resolved Assessment & Plan: - resolved Na+ 137 today - IV fluids Code(s): E87.1 - HYPO-OSMOLALITY AND HYPONATREMIA (2) Confusion Current Visit: Yes Status: Resolved Assessment & Plan: - resolved since sodium and SATISH resolved - 2:2 hypovolemia Code(s): R41.0 - DISORIENTATION, UNSPECIFIED (3) SATISH (acute kidney injury) Current Visit: Yes Status: Resolved Assessment & Plan: - secondary to hypovolemia. - IV fluids - resolved Code(s): N17.9 - ACUTE KIDNEY FAILURE, UNSPECIFIED (4) HTN (hypertension) Current Visit: Yes Status: Chronic Assessment & Plan: - BP stable - continue home meds - monitor Code(s): I10 - ESSENTIAL (PRIMARY) HYPERTENSION (5) UTI (urinary tract infection) Current Visit: Yes Status: Resolved Assessment & Plan: - urine culture negative- Rocephin stopped Code(s): N39.0 - URINARY TRACT INFECTION, SITE NOT SPECIFIED - Discharge Discharge Date: 09/16/23 Disposition: Home, Self-Care Condition: Stable Prescriptions: Continue Alendronate Sodium 70 mg [Fosamax 70 MG] 70 mg PO Q7D@0600 Aspirin EC 81 mg [Ecotrin 81 mg] 81 mg PO DAILY Atorvastatin Calcium [Lipitor] 1 tab PO HS Amlodipine Besylate 5 mg [Norvasc 5 mg] 1 tab PO DAILY Metoprolol Tartrate 50 mg [Lopressor 50 MG] 1 tab PO BID Montelukast Sodium 10 mg [Singulair 10 MG] 10 mg PO DAILY Spironolactone 50 mg PO DAILY PRN PRN PRN Reason: edema Additional Instructions: Follow up with PCP this week for repeat labs as carbon dioxide was 19 at d/c. Follow up with: MEETA HOBBS MD [Primary Care Provider] -
== END 2023-09-16 10:45 | disposition home or self-care (01) ==
LOC: ED 19:59 → INTOOBSV 09-15 00:01 → MED SURG 09-15 00:01
PROVIDERS: ADMIT Internal Medicine; ATTEND Internal Medicine
DX: E87.1 Hypo-osmolality and hyponatremia (principal); R41.0 Disorientation, unspecified; N17.9 Acute kidney failure, unspecified; I10 Essential (primary) hypertension; N39.0 Urinary tract infection, site not specified; E78.5 Hyperlipidemia, unspecified; R19.7 Diarrhea, unspecified; Z79.899 Other long term (current) drug therapy; Z86.73 Personal history of transient ischemic attack (TIA), and cerebral infarction without residual deficits
CPT/HCPCS: 36000; 36415; 70450; 80048; 80053; 81001; 82140; 82947; 83735; 83935; 84133; 84300; 85025; 85027; 87077; 87086; 87186; 93005; 93041; 93268; 94760; 96360; 96365; 99284; G0378; Q3014; J0696; A9270-GY

== ENCOUNTER 2024-02-13 05:49 | Day surgery (SDC) | payer MEDICARE ==
[2024-02-13] MEDS: Lactated Ringers 1,000 ML IV SCH (06:26)
[2024-02-13 06:36] LABS: Absolute Neutrophil Ct (ANC) 5.69 x10^3/uL (1.56-6.13); BASOPHIL % 0.8 % (0.1-1.2); Basophil (Absolute #) 0.07 x10^3/uL (0.01-0.08); Eosinophil % 0.7 % (0.7-5.8); Eosinophil (Absolute #) 0.06 x10^3/uL (0.04-0.36); Hematocrit 39.6 % (34.1-44.9); Hemoglobin 13.7 g/dL (11.2-15.7); IMMATURE GRAN # 0.04 x10^3u/L (0.001-0.031); IMMATURE GRAN % 0.5 % (0.001-0.429); Lymphocytes % 23.9 % (19.3-51.7); Mean Cell Volume 83.4 fL (79.4-94.8); Mean Corpuscular Hemoglobin 28.8 pg (25.6-32.2); Mean Corpuscular Hgb Concent. 34.6 g/dL (32.2-35.5); Mean Platelet Volume 10.1 fL (9.4-12.3); Monocyte (Absolute #) 0.84 x10^3/uL (0.24-0.86); Monocytes % 9.5 % (4.7-12.5); Neutrophil % 64.6 % (34.0-71.1); Platelet Count 259 x10^3/uL (182-369); Red Blood Count 4.75 x10^6/uL (3.93-5.22); White Blood Count 8.8 x10^3/uL (3.98-10.04)
[2024-02-13 06:40] VITALS: RESP 18
[2024-02-13 06:49] LABS: ANION GAP 16.6 MEQ/L (5-15); Calcium 9.9 mg/dL (8.4-10.2); Creatinine 1 0.91 mg/dL (0.52-1.04); EST GLOMERULAR FILTRATION RATE 67.9 ML/MIN; Potassium 3.6 mmol/L (3.5-5.1)
[2024-02-13] MEDS ORDERED: Xylocaine-Mpf 2% 5 Ml Vial ONE (07:53)
[2024-02-13] MEDS ORDERED: DIPRIVAN 200 MG/20 ML IV ONE (07:53)
[2024-02-13] MEDS ORDERED: ROBINUL ONE (07:58)
[2024-02-13 08:27] VITALS: O2SAT 97
[2024-02-13 08:33] VITALS: BP 110/70; PULSE 68; TEMP 97.3
--- NOTE | 2024-02-15 10:20 | OP ---
SURGERY DATE/TIME: 02/13/2024 [id number] PREOPERATIVE DIAGNOSES: 1) Screening colonoscopy. 2) History of colon polyps. POSTOPERATIVE DIAGNOSIS: Internal hemorrhoids. PROCEDURE PERFORMED: Colonoscopy. SURGEON: Cesar Reardon MD ANESTHESIA: MAC by Gaurav Bueno CRNA. ESTIMATED BLOOD LOSS: None. SPECIMENS: None. DESCRIPTION OF PROCEDURE AND FINDINGS: After informed written consent was obtained, the patient was taken to the endoscopy suite. She was placed in left lateral decubitus position. Anesthesia was titrated to the desired level of consciousness. Digital rectal exam showed normal sphincter tone and some internal hemorrhoidal tissue. The scope was inserted into the rectum, and sequentially the entire colonic mucosa was traversed. Level of the cecum was reached and verified with direct visualization of the ileocecal valve. Upon withdrawal, careful mucosal inspection revealed no gross abnormalities other than some scattered diverticula. Prior to withdrawal, retroflexion showed internal hemorrhoids, but no other lesions. The scope was removed and patient was transferred to the recovery room in good condition.
== END 2024-02-13 08:35 | disposition home or self-care (01) ==
LOC: SDC 05:49
PROVIDERS: ATTEND Family Medicine
DX: Z12.11 Encounter for screening for malignant neoplasm of colon (principal); Z09 Encounter for follow-up examination after completed treatment for conditions other than malignant neoplasm; Z86.0100 Personal history of colon polyps, unspecified; K64.8 Other hemorrhoids; I10 Essential (primary) hypertension
CPT/HCPCS: 36415; 80048; 85025; G0120; J2704